=== PATIENT | female | born 1985 | race Two or more races ===

== ENCOUNTER 2023-06-22 07:49 | Inpatient (IN) | payer OTHER ==
[~2023-06-22] VITALS: Ht 167.6 cm; Wt 68.9 kg
[2023-06-23] MEDS ORDERED: PROVENTIL HFA6.7 GM IH (09:29)
[2023-06-23] MEDS ORDERED: IRON236 MG PO (09:30)
[2023-06-23 10:19] LABS: HEMATOCRIT 40.8 % (36.0-45.00); HEMOGLOBIN 12.9 g/dL (12.0-15.00); MEAN CELL VOLUME 78.8 fL (80.00-100.00); MEAN CORPUSCULAR HGB CONC 31.7 g/dl (32.0-36.0); PLATELET COUNT 199 K/uL (150-450); RED BLOOD COUNT 5.18 M/uL (4.00-6.00); RED CELL DISTRIBUTION WIDTH 21.5 % (11.5-14.5)
[2023-06-23 10:27] LABS: INR 1.04; PARTIAL THROMBOPLASTIN TIME 26.1 SECONDS (22.0-34.0); PROTHROMBIN TIME 10.9 SECONDS (9.0-11.5)
[2023-06-23 10:34] LABS: ALBUMIN 3.7 gm/dL (3.4-5.0); BILIRUBIN TOTAL 0.86 mg/dL (0.3-1.2); CALCIUM 9.3 mg/dL (8.5-10.1); CREATININE SERUM 0.76 mg/dL (0.55-1.02); GFR 84.29; GLOBULINA 4.3 G/DL (2.4-3.5); POTASSIUM 4.55 mEq/L (3.5-5.1)
[2023-06-23 10:40] LABS: URINE APPEARANCE Clear; URINE BILIRRUBIN Negative (NEGATIVE); URINE BLOOD Negative; URINE COLOR Yellow; URINE GLUCOSE Negative (NEGATIVE); URINE LEUKOCYTE Negative; URINE NITRATE Negative; URINE PROTEIN Negative (NEGATIVE); URINE UROBILINOGEN 0.2 E.U./dl
[2023-06-23 10:44] LABS: URINE BACTERIA 13.8 uL (0.0-1933); URINE EPITHELIAL CELLS 3.3 uL (0.0-38.8); URINE RBC 4.3 uL (0.0-20.8)
[2023-06-23 10:53] LABS: URINE WBC 0.6 uL (0.0-23.2)
== END 2023-07-02 11:26 | disposition home or self-care (01) | DRG 743 ==
LOC: OB/GYN 06-30 05:00 → O/R 06-30 05:00 → SURH 06-30 07:00 → OB/GYN 06-30 10:20
PROVIDERS: ADMIT Obstetrics & Gynecology; ATTEND Obstetrics & Gynecology
PROC: 0UT60ZZ Resection of Left Fallopian Tube, Open Approach (ICD-10-PCS; 2023-06-30)
PROC: 0DNW0ZZ Release Peritoneum, Open Approach (ICD-10-PCS; 2023-06-30)
PROC: 0UN20ZZ Release Bilateral Ovaries, Open Approach (ICD-10-PCS; 2023-06-30)
PROC: 0DN80ZZ Release Small Intestine, Open Approach (ICD-10-PCS; 2023-06-30)
PROC: 0UT90ZZ Resection of Uterus, Open Approach (ICD-10-PCS; principal; 2023-06-30 07:00)
DX: D25.1 Intramural leiomyoma of uterus (principal); N80.03 Adenomyosis of the uterus; Z20.822 Contact with and (suspected) exposure to COVID-19; N76.3 Subacute and chronic vulvitis

== ENCOUNTER 2024-08-21 12:18 | Outpatient (CLI) | payer OTHER ==
[~2024-08-21 12:18] MED LIST: IRON236 MG PO; PROVENTIL HFA6.7 GM IH
== END 2024-08-21 12:40 | disposition home or self-care (01) ==
LOC: TOM 12:18
PROVIDERS: ATTEND Obstetrics & Gynecology
DX: K35.80 Unspecified acute appendicitis (principal); N83.291 Other ovarian cyst, right side

== ENCOUNTER 2024-10-19 22:53 | Emergency (ER) | payer OTHER ==
[~2024-10-19] VITALS: Ht 170.2 cm; Wt 77.1 kg
[2024-10-20] MEDS ORDERED: 0.9 % SODIUM CHLORIDE 1,000 ML IV STA (01:13)
[2024-10-20] MEDS ORDERED: KETOROLAC TROMETHAMINE 30 MG VIAL IV STA (01:13)
[2024-10-20] MEDS ORDERED: MEPERIDINE HCL/PF 50 MG/ML VIAL IM STA (01:14)
[2024-10-20] MEDS ORDERED: PROMETHAZINE HCL 50 MG/ML AMPUL IM STA (01:15)
[2024-10-20] MEDS ORDERED: KETOROLAC TROMETHAMINE 30 MG VIAL ONE (01:22)
[2024-10-20] MEDS ORDERED: PROMETHAZINE HCL 50 MG/ML AMPUL IM ONE (01:22)
[2024-10-20 01:59] LABS: HEMATOCRIT 41.8 % (36.0-45.00); HEMOGLOBIN 14.3 g/dL (12.0-15.00); MEAN CELL VOLUME 86.2 fL (80.00-100.00); MEAN CORPUSCULAR HEMOGLOBIN 29.5 pg (27.00-32.0); MEAN CORPUSCULAR HGB CONC 34.2 g/dl (32.0-36.0); PLATELET COUNT 182 K/uL (150-450); RED BLOOD COUNT 4.85 M/uL (4.00-6.00); RED CELL DISTRIBUTION WIDTH 13.4 % (11.5-14.5)
[2024-10-20 02:17] LABS: CALCIUM 9.9 mg/dL (8.5-10.1); CREATININE SERUM 0.74 mg/dL (0.55-1.02); GFR 86.49; POTASSIUM 4.65 mEq/L (3.5-5.1)
[2024-10-20 03:12] LABS: PH,URINE 7.5 (5.0-8.0); URINE APPEARANCE Clear; URINE BILIRRUBIN Negative (NEGATIVE); URINE BLOOD Negative; URINE COLOR Yellow; URINE GLUCOSE Negative (NEGATIVE); URINE KETONE Negative (NEGATIVE); URINE LEUKOCYTE Negative; URINE NITRATE Negative; URINE PROTEIN Negative (NEGATIVE); URINE UROBILINOGEN 0.2 E.U./dl
[2024-10-20 03:16] LABS: URINE BACTERIA 63.5 uL (0.0-1933); URINE EPITHELIAL CELLS 7.1 uL (0.0-38.8); URINE RBC 4.1 uL (0.0-20.8); URINE WBC 10.4 uL (0.0-23.2)
[2024-10-20] MEDS ORDERED: HYOSCYAMINE SULFATE 0.125 MG TAB.SUBL SL ONE (03:45)
[2024-10-20] MEDS ORDERED: HYOSCYAMINE SULFATE 0.125 MG TAB.SUBL ONE (04:37)
== END 2024-10-20 05:25 | disposition home or self-care (01) ==
LOC: ER 22:55
DX: R10.32 Left lower quadrant pain (principal); R10.9 Unspecified abdominal pain